=== PATIENT | female | born 1995 | race Hispanic/Latino ===

== ENCOUNTER 2017-11-11 22:22 | Emergency (ER) | payer BC, OTHER ==
[2017-11-11 22:24] VITALS: BMI 19.8
[2017-11-11 23:34] VITALS: O2SAT 97
--- NOTE | 2017-11-11 23:46 | ED PDOC ---
Arrival/HPI <Norman Lewis - Last Filed: 11/12/17 00:28> - General Historian: Patient - History of Present Illness Time/Duration: 4-6 hours Symptom Onset: Gradual Symptom Course: Intermittent Quality: Aching, Tightness Severity Level: 3 Activities at Onset: Rest Context: Sitting, Standing, Exertion, Home <Sully Pride - Last Filed: 11/12/17 01:54> - General Chief Complaint: Chest Pain Time Seen by Provider: 11/11/17 23:31 - History of Present Illness Narrative History of Present Illness (Text): 11/11/17 23:41 Pt is a 22 yr old female with PMH of seizures who presents to the ED with left side chest pain and shortness of breath for the past day. States that she wears a retainer on her teeth that gets slimy and full of bacteria and worried that the chest pain may be bacteria affecting her heart. Pt can point to the chest pain and reproduce it with pressure and deep inspiration. Denies fever, nausea, vomiting, diarrhea, recent travel, or illness. (Sully Pride) Past Medical History - Provider Review Nursing Documentation Reviewed: Yes - Travel History Have you recently traveled outside [place] w/in the past 3 mons?: No - Infectious Disease Hx of Infectious Diseases: None - Tetanus Immunization Tetanus Immunization: Up to Date - Cardiac Hx Cardiac Disorders: No - Pulmonary Hx Respiratory Disorders: No - Neurological Hx Seizures: Yes - HEENT Hx HEENT Disorder: No (WEARS RX GLASSES) - Renal Hx Renal Disorder: No - Endocrine/Metabolic Hx Endocrine Disorders: No - Hematological/Oncological Hx Anemia: Yes - Integumentary Hx Dermatological Disorder: No - Musculoskeletal/Rheumatological Hx Musculoskeletal Disorders: No Hx Falls: Yes - Gastrointestinal Hx Gastrointestinal Disorders: No - Genitourinary/Gynecological Hx Genitourinary Disorders: No - Psychiatric Hx Depression: No Hx Emotional Abuse: No Hx Physical Abuse: No Hx Substance Use: No - Past Surgical History Past Surgical History: No Previous - Anesthesia Hx Anesthesia: No - Suicidal Assessment Feels Threatened In Home Enviroment: No <Sully Pride - Last Filed: 11/12/17 01:54> Family/Social History - Physician Review Nursing Documentation Reviewed: Yes Family/Social History: Unknown Family HX Smoking Status: Never Smoked Hx Alcohol Use: Yes Frequency of alcohol use: Socially Hx Substance Use: No Hx Substance Use Treatment: No <Sully Pride - Last Filed: 11/12/17 01:54> Allergies/Home Meds <DebbieNorman - Last Filed: 11/12/17 00:28> <Sully Pride - Last Filed: 11/12/17 01:54> Allergies/Adverse Reactions: Allergies No Known Allergies Allergy (Verified 11/11/17 23:35) Home Medications: Home Meds Medication Instructions Recorded Confirmed Zonisamide 200 mg PO HS 08/02/15 11/11/17 Review of Systems - Review of Systems Constitutional: Normal. absent: Fatigue Eyes: Normal. absent: Vision Changes ENT: Normal Respiratory: SOB. absent: Cough, Sputum, Wheezing Cardiovascular: Chest Pain. absent: Palpitations Gastrointestinal: Normal. absent: Abdominal Pain, Stool Changes Genitourinary Female: Normal Musculoskeletal: Normal. absent: Back Pain Skin: Normal Neurological: Normal. absent: Headache, Dizziness Endocrine: Normal Hemo/Lymphatic: Normal Psychiatric: Normal <Sully Pride - Last Filed: 11/12/17 01:54> Physical Exam Vital Signs Reviewed: Yes Temperature: Afebrile Blood Pressure: Normal Pulse: Regular Respiratory Rate: Normal Appearance: Positive for: Well-Appearing, Non-Toxic, Comfortable Pain Distress: Mild Mental Status: Positive for: Alert and Oriented X 3 - Systems Exam Head: Present: Atraumatic, Normocephalic Pupils: Present: PERRL Extroacular Muscles: Present: EOMI Conjunctiva: Present: Normal Mouth: Present: Moist Mucous Membranes Neck: Present: Normal Range of Motion Respiratory/Chest: Present: Clear to Auscultation, Good Air Exchange, Tender to Palpation (over the left intercostalis mm, R2-R4). No: Respiratory Distress, Accessory Muscle Use, Wheezes, Decreased Breath Sounds Cardiovascular: Present: Regular Rate and Rhythm, Normal S1, S2. No: Murmurs, Irregular Rhythm Abdomen: No: Tenderness, Distention, Peritoneal Signs Back: Present: Normal Inspection Upper Extremity: Present: Normal Inspection. No: Cyanosis, Edema Lower Extremity: Present: Normal Inspection. No: Edema Neurological: Present: GCS=15, CN II-XII Intact, Speech Normal Skin: Present: Warm, Dry, Normal Color. No: Rashes Psychiatric: Present: Alert, Oriented x 3, Normal Insight, Normal Concentration <Sully Pride - Last Filed: 11/12/17 01:54> Vital Signs Temp Pulse Resp BP Pulse Ox 11/11/17 23:30 97.4 F L 91 H 18 131/94 H 97 Medical Decision Making <Norman Lewis - Last Filed: 11/12/17 00:28> - EKG Interpretation Interpreted by ED Physician: Yes (NSR with a rate of 73) <Sully Pride - Last Filed: 11/12/17 01:54> ED Course and Treatment: 11/11/17 23:46 Pt is a 22 yr old female with PMH of seizures who presents to the ED with left side chest pain and shortness of breath for the past day. On exam, point tenderness of the left upper intercostal muscles above and below the breast; pt wears a bra with underwire that presses on the area of concern Working Dx: costochondritis Plan EKG, CXR, POC hcg assess and dispo 11/11/17 23:51 11/12/17 00:18 Pt usually takes antiseizure mediation at this time; dosing of 200 mg PO Zonisamide given 11/12/17 01:20 Mother at bedside and informed of results Advised to rest and take ibuprofen prn f/u with PMD if pain persists (Sully Pride) - RAD Interpretation Narrative RAD Interpretations (Text): 11/12/17 01:48 No active cardiopulmonary disease appreciated on CXR (Sully Pride) Radiology Orders: 11/11/17 23:51 CXR [CHEST PORTABLE] [RAD] Stat - Medication Orders Current Medication Orders: Discontinued Medications Zonisamide (Zonegran) 200 mg PO STAT STA Stop: 11/12/17 00:14 Last Admin: 11/12/17 01:14 Dose: 200 mg - PA / SQUAD BOSS / Resident Statement / has reviewed & agrees with the documentation as recorded. KARENA has examined the patient and agrees with the treatment plan. <Norman Lewis - Last Filed: 11/12/17 00:28> Disposition/Present on Arrival <Norman Lewis - Last Filed: 11/12/17 00:28> - Present on Arrival Any Indicators Present on Arrival: Yes History of DVT/PE: No History of Uncontrolled Diabetes: No Urinary Catheter: No History of Decub. Ulcer: No History Surgical Site Infection Following: None - Disposition Have Diagnosis and Disposition been Completed?: Yes Disposition Time: :17 Patient Plan: Discharge <Sully Pride - Last Filed: 11/12/17 01:54> - Disposition Diagnosis: Costochondral chest pain Disposition: HOME/ ROUTINE Patient Problems: Current Active Problems Problem Status Onset Costochondral chest pain Acute Condition: STABLE Discharge Instructions (ExitCare): Costochondritis (DC) Additional Instructions: Jackie, thank you for letting us take care of you today. Your provider was KSENIA Pride. You were treated for Costochondrol Chest Pain. The emergency medical care you received today was directed at your acute symptoms. If you were prescribed any medication, please fill it and take as directed. It may take several days for your symptoms to resolve. Return to the Emergency Department if your symptoms worsen, do not improve, or if you have any other problems. Take Motrin 400mg every 6 hours to relieve pain and inflammation If the pain persists, see your Primary Doctor Please contact your doctor or call one of the physicians/clinics you have been referred to that are listed on the Patient Visit Information form that is included in your discharge packet. Bring any paperwork you were given at discharge with you along with any medications you are taking to your follow up visit. Our treatment cannot replace ongoing medical care by a primary care provider (PCP) outside of the emergency department. Thank you for allowing the [facility] team to be part of your care today. If you had an X-Ray or CT scan: A Radiologist will review the ED reading if any change in treatment is needed we will contact you. Prescriptions: Ibuprofen [Motrin Tab] 400 mg PO Q6 #20 tab Referrals: PCP,NO [Primary Care Provider] - Follow up with primary Forms: [employer] (Latvian)
[2017-11-12 02:43] VITALS: BP 112/70; PULSE 83; RESP 17; TEMP 98
--- NOTE | 2017-11-12 09:42 | RAD ---
HISTORY: Chest pain COMPARISON: Comparison chest 07/01/2019 FINDINGS: LUNGS: No active pulmonary disease. PLEURA: No significant pleural effusion identified, no pneumothorax apparent. CARDIOVASCULAR: Normal. OSSEOUS STRUCTURES: No significant abnormalities. VISUALIZED UPPER ABDOMEN: Normal. OTHER FINDINGS: None. IMPRESSION: No active disease.
--- NOTE | 2017-11-12 15:39 | CARD ---
APPROVED REPORT EKG Measurement Heart [id number] <Conclusion> Normal sinus rhythm Normal ECG
== END 2017-11-12 02:43 | disposition home or self-care (01) ==
LOC: ED 22:22
DX: R07.1 Chest pain on breathing (principal)